=== PATIENT | male | born 1965 | race Caucasian/White ===

== ENCOUNTER 2020-03-09 17:35 | Emergency (ER) | payer MEDICAID, OTHER ==
[~2020-03-09] VITALS: Ht 177.8 cm; Wt 74.8 kg
[~2020-03-09 17:35] MED LIST: CEPH-37 PO; IBUP800T24 PO
[2020-03-09 18:11] VITALS: BP 170/76
[2020-03-09] MEDS ORDERED: cefTRIAXone 1GM/50ML D5W 50 ML IV ONE (18:15)
[2020-03-09] MEDS ORDERED: TETANUS-DIPTH-ACEL PERTUSSIS 0.5ML SYR Tdap IM ONE (18:15)
[2020-03-09] MEDS ORDERED: cefTRIAXone SOD 1,000 MG VL ONE (18:23)
[2020-03-09] MEDS ORDERED: cefTRIAXone SOD 1,000 MG VL IM ONE (18:30)
== END 2020-03-09 18:30 | disposition home or self-care (01) ==
LOC: ER 17:35
DX: L03.113 Cellulitis of right upper limb (principal); E11.9 Type 2 diabetes mellitus without complications; I10 Essential (primary) hypertension
CPT/HCPCS: 90471; 90715; 96372; 99284; J0696